=== PATIENT | female | born 1950 | race Hispanic/Latino ===

== ENCOUNTER 2020-10-02 14:00 | Inpatient (IN) | payer MEDICARE ==
[~2020-10-02] VITALS: Ht 157.5 cm; Wt 84.7 kg
[2020-10-02 12:21] LABS: APPEARANCE,URINE Clear (CLEAR); BILIRUBIN,URINE Negative (NEGATIVE); COLOR,URINE Yellow (YELLOW); GLUCOSE, URINE (UA) Negative (NEGATIVE); KETONES,URINE Negative (NEGATIVE); LEUKOCYTE ESTERASE ,URINE Trace (NEGATIVE); NITRATE,URINE Negative (NEGATIVE); OCCULT BLOOD,URINE Negative (NEGATIVE); PH,URINE 7.5 (5.0-8.0); PROTEIN,URINE Negative (NEGATIVE)
[2020-10-02 12:36] LABS: BACTERIA,URINE Few /HPF (None Seen); RBC,URINE 0-1 /HPF (0-1); WBC,URINE 0-1 /HPF (0-1)
[2020-10-02 12:45] LABS: BASOPHILS % (AUTO) 0.1 % (0.0-5.0); EOSINOPHILS % (AUTO) 0.1 % (0.0-8.0); HEMATOCRIT 37.2 % (36-48); LYMPHOCYTES % (AUTO) 15.5 % (21.0-51.0); MEAN CORPUSCULAR HEMOGLOBIN 28.1 pg (27.0-33.0); MEAN CORPUSCULAR HGB CONC 31.2 g/dL (32.0-36.0); MEAN CORPUSCULAR VOLUME 90.1 fL (79-99); MONOCYTES % (AUTO) 6.5 % (3.0-13.0); NEUTROPHILS % (AUTO) 77.2 % (40.0-77.0); PLATELET COUNT (AUTO) 311 K/uL (130-400); RED BLOOD CELL COUNT(AUTO) 4.13 MIL/uL (4.00-5.50); WHITE BLOOD COUNT (AUTO) 8.8 K/uL (4.8-10.8)
[2020-10-02 13:05] LABS: INR 0.99 (0.85-1.15); PROTHROMBIN TIME 10.7 SEC (9.6-11.6)
[2020-10-02 13:13] LABS: CREATININE 0.9 mg/dL (0.5-1.5)
[2020-10-02 13:18] LABS: POTASSIUM 4.4 mmol/L (3.5-5.1)
--- NOTE | 2020-10-08 12:40 | NUR ---
EKG DR. ROLON NOTIFIED OF ABNORMAL EKG. NO NEW ORDERS RECEIVED. OK TO PROCEED WITH SCHEDULED SURGERY.
--- NOTE | 2020-10-08 13:51 | NUR ---
LABS ABNORMAL LABS INCLUDING TRACE LEUKOCYTES REPORTED TO DR. HOLLY. NO NEW TELEPHONE ORDERS RECEIVED. OK TO PROCEED WITH SCHEDULED PROCEDURE.
[2020-10-08 14:07] VITALS: BP 144/73
[2020-10-08] MEDS ORDERED: PRAV20TA4 PO (14:45)
[2020-10-08] MEDS ORDERED: IBUP-2070 PO (14:45)
[2020-10-08] MEDS ORDERED: ACET-2743 PO (14:45)
[2020-10-08] MEDS ORDERED: VITAD50000 PO (14:45)
[2020-10-08] MEDS ORDERED: LIDO1ADH71 TP (14:45)
[2020-10-09] VITALS (23 sets, daily range): BP systolic 100–163; BP diastolic 62–87
[2020-10-09] MEDS ORDERED: CEFAZOLIN SODIUM 1 GM VIAL IVP SCH (06:00)
[2020-10-09] MEDS ORDERED: LACTATED RINGERS 1000ML 1,000 ML IV ONE (09:20)
[2020-10-09] MEDS ORDERED: TRANEXAMIC ACID 1000MG/10ML ONE ×3 (13:27→20:50)
[2020-10-09] MEDS ORDERED: CEFAZOLIN SODIUM 1 GM VIAL ONE ×3 (13:27→19:09)
[2020-10-09] MEDS ORDERED: METOCLOPRAMIDE 10 MG/2 ML VIAL ONE (13:28)
[2020-10-09] MEDS ORDERED: KETOROLAC TROMETHAMINE 15MG/ML ONE (13:28)
[2020-10-09] MEDS ORDERED: ACETAMINOPHEN EXTRA STRENGTH 500 MG TABLET ONE (13:28)
[2020-10-09] MEDS ORDERED: CELECOXIB 200 MG CAP ONE (13:29)
[2020-10-09] MEDS ORDERED: PROPOFOL 10 MG/ML 20ML VIAL IV ONE (13:42)
[2020-10-09] MEDS ORDERED: ROCURONIUM 10MG/1ML SYR 10 MG/ML ML ONE ×4 (13:42→18:32)
[2020-10-09] MEDS ORDERED: LIDOCAINE PF 2% 5ML ABBOJECT ONE (13:42)
[2020-10-09] MEDS ORDERED: SUCCINYLCHOLINE CHLORIDE 20 MG/ML 10 ML VIAL ONE (13:42)
[2020-10-09] MEDS ORDERED: ROPIVACAINE 0.5% 5MG/ML 30ML IJ ONE ×2 (13:42→13:45)
[2020-10-09] MEDS ORDERED: CEFAZOLIN SODIUM 1 GM VIAL IVP ONE ×2 (15:30→19:30)
[2020-10-09] MEDS ORDERED: TRANEXAMIC ACID 1000MG/10ML IV ONE (15:45)
[2020-10-09] MEDS ORDERED: CEFAZOLIN SODIUM 1 GM VIAL IRRIG ONE ×2 (16:15)
[2020-10-09] MEDS ORDERED: ALBUMIN (HUMAN) 5% 250 ML IV ONE ×2 (16:30→17:18)
[2020-10-09] MEDS ORDERED: THROMBIN-JMI 20000 UNIT KIT TP ONE ×2 (17:29→17:59)
[2020-10-09] MEDS ORDERED: SODIUM BICARB 8.4% 50ML SYRINGE ONE (17:36)
[2020-10-09] MEDS ORDERED: PHENYLEPHRINE HCL 10 MG/ML 1ML VIAL IV ONE (18:31)
[2020-10-09] MEDS ORDERED: MIDAZOLAM HCL 1 MG/ML 2ML VIAL ONE (18:33)
[2020-10-09] MEDS ORDERED: PROPOFOL 1000 MG/100 ML 0 ML IV ONE (20:34)
[2020-10-09] MEDS ORDERED: PROPOFOL 1000 MG/100 ML 100 ML IV ONE (20:38)
--- NOTE | 2020-10-09 20:40 | NUR ---
16FR F/C STARTED ORDERED BY DR. HOLLY. PROCEDURE RENDERED USING CIRCUS LABORER, NO TRAUMA, NO DIFFICULTY, CLEAR IN COLOR LIGHT SUNITA URINE DRAINING Addendum: 10/09/20 at 2212 by MONICA CAMARENA RN RN Amended: Links added.
[2020-10-09] MEDS ORDERED: MORPHINE SULFATE 2 MG/ML 1ML SYG IM PRN (20:45)
[2020-10-09] MEDS ORDERED: DiphenhydrAMINE HCL 50 MG/ML VIAL IVP PRN (20:45)
[2020-10-09] MEDS ORDERED: POTASSIUM CHLORIDE 10% ELIXIR 20 MEQ/15 ML UDCUP PO PRN (20:45)
[2020-10-09] MEDS ORDERED: POTASSIUM CHLORIDE 20 MEQ ERTAB PO PRN (20:45)
[2020-10-09] MEDS ORDERED: CALCIUM CARBONATE 500 MG TABLET PO PRN (20:45)
[2020-10-09] MEDS ORDERED: FE FUMARATE/FA/MV, MIN COMB#15 1 TAB PO PRN (20:45)
[2020-10-09] MEDS ORDERED: OXYCODONE HCL 5 MG TAB PO PRN ×2 (20:45)
[2020-10-09] MEDS ORDERED: POTASSIUM CHLORIDE 20MEQ/100ML 100 ML IV PRN (20:45)
[2020-10-09] MEDS ORDERED: TEMAZEPAM 15 MG CAPSULE PO PRN (20:45)
[2020-10-09] MEDS: ACETAMINOPHEN EXTRA STRENGTH 500 MG TABLET PO SCH (20:45)
[2020-10-09] MEDS ORDERED: LIDOCAINE HCL-MPF 1% 2ML VIAL IV PRN (20:45)
[2020-10-09] MEDS ORDERED: FAMOTIDINE 20MG TAB 20 MG TAB PO SCH (21:00)
[2020-10-09] MEDS: CELECOXIB 200 MG CAP PO SCH (21:00)
--- NOTE | 2020-10-09 21:20 | NUR ---
PT OPENS EYES TO VERBAL STIMULI , MOVES RT HAND AND LOWER EXTREMITIES TO COMMAND, UNABLE TO MOVE LT ARM. NODS APPROPRIATELY TO NAME. PT IS ABLE TO FELL TACTILE STIMULI TO LT ARM .
--- NOTE | 2020-10-09 21:20 | NUR ---
PT. OPENS EYES TO VERBAL COMMANDS,AND NODS APPROPRIATELY TO NAME. FOLLOWS VERBAL COMMANDS WITH RT UPPER EXTREMITY,AND LOWER EXTREMITIES . PI IS UNABLE TO MOVE LT UPPER EXTREMITY BUT NODS ABLE TO FEEL TACTILE STIMULI. Addendum: 10/09/20 at 2219 by MONICA CAMARENA RN RN Amended: Links added.
[2020-10-09 21:35] LABS: ABG BASE EXCESS -5.3 mmol/L (-2.0-3.0); ABG HCO3 20.6 mmol/L (21.0-28.0); ABG OXYGEN SATURATION 98.9 % (95.0-99.0); ABG PCO2 41 mmHg (32-45)
[2020-10-09 21:35] LABS: ABG BASE EXCESS 2.1 mmol/L (-2.0-3.0); ABG OXYGEN SATURATION 98.6 % (95.0-99.0); ABG PCO2 37 mmHg (32-45)
[2020-10-09 21:35] LABS: ABG BASE EXCESS 8.4 mmol/L (-2.0-3.0); ABG OXYGEN SATURATION 98.5 % (95.0-99.0); ABG PCO2 46 mmHg (32-45)
[2020-10-09] MEDS ORDERED: SODIUM CHLORIDE 0.9% 250 ML IV ONE (21:47)
--- NOTE | 2020-10-09 21:55 | NUR ---
PT. NEUROLOGICALLY THE SAME NOTE DESCRIBED AT 2120 PM. TRANSFER TO ICU ON MECH VENT AT PRESCRIBED SETTINGS, UNIT OF PRBC RUNNING ORDERED,BUT NOT COMPLETED. Addendum: 10/09/20 at 2223 by MONICA CAMARENA RN RN Amended: Links added.
[2020-10-09 22:35] LABS: ABG OXYGEN SATURATION 98.2 % (95.0-99.0); ABG PCO2 35 mmHg (32-45)
[2020-10-09] MEDS: ONDANSETRON HCL 4 MG/2 ML VIAL IVP PRN (23:22)
[2020-10-10] VITALS (16 sets, daily range): BP systolic 104–134; BP diastolic 51–71
[2020-10-10] MEDS ORDERED: MORPHINE-NS 50 MG/50 ML 50 ML IV PRN (00:30)
[2020-10-10 01:50] LABS: ABG BASE EXCESS -0.2 mmol/L (-2.0-3.0); ABG HCO3 24.3 mmol/L (21.0-28.0); ABG OXYGEN SATURATION 97.8 % (95.0-99.0); ABG PCO2 39 mmHg (32-45)
[2020-10-10] MEDS: CEFAZOLIN SODIUM 1 GM VIAL IVP SCH ×2 (02:06→09:39)
[2020-10-10] MEDS ORDERED: LACTATED RINGERS 1000ML 1,000 ML IV SCH (02:30)
[2020-10-10 03:53] LABS: HEMATOCRIT 25.6 % (36-48); MEAN CORPUSCULAR HGB CONC 34.4 g/dL (32.0-36.0); MEAN CORPUSCULAR VOLUME 84.5 fL (79-99); PLATELET COUNT (AUTO) 60 K/uL (130-400); RED BLOOD CELL COUNT(AUTO) 3.03 MIL/uL (4.00-5.50); RED CELL DISTRIBUTION WIDTH 13.3 % (11.0-15.5); WHITE BLOOD COUNT (AUTO) 16.6 K/uL (4.8-10.8)
[2020-10-10 04:03] LABS: INR 1.03 (0.85-1.15); PROTHROMBIN TIME 11.1 SEC (9.6-11.6)
[2020-10-10 04:15] LABS: BILIRUBIN,DIRECT 0.9 mg/dL (0.0-0.3); BILIRUBIN,TOTAL 1.6 mg/dL (0.2-1.0); CREATININE 0.8 mg/dL (0.5-1.5); POTASSIUM 3.9 mmol/L (3.5-5.1)
[2020-10-10] MEDS: SODIUM CHLORIDE 0.9% 1000ML 1,000 ML IV SCH ×2 (04:26→06:45)
[2020-10-10] MEDS: ONDANSETRON HCL 4 MG/2 ML VIAL IVP PRN (04:26)
[2020-10-10] MEDS: ACETAMINOPHEN EXTRA STRENGTH 500 MG TABLET PO SCH ×3 (04:45→22:46)
--- NOTE | 2020-10-10 07:46 | NUR ---
Pt. arrived intubated and sedated on Propofol and with Levophed gtt Right arm in sling. Notified Pulmonology group for vent orders, RT to check weaning parameters and extubate if criteria met, propofol and levophed off. Pt. was extubated at 2:30 am tolerated well. Pt c/o pain in mouth area, however no pain in right shoulder surgical arm. Medicated with IV med for pain but bp decreased 90/52 restarted Levophed No further c/o pain this am.
[2020-10-10] MEDS: TRAMADOL HCL 50 MG TABLET PO PRN ×2 (08:07→18:02)
[2020-10-10] MEDS: POLYETHYLENE GLYCOL 3350 17 GM POWD.PACK PO SCH (08:07)
[2020-10-10] MEDS: MORPHINE SULFATE 2 MG/ML 1ML SYG IV PRN (09:26)
[2020-10-10] MEDS: FAMOTIDINE 20MG TAB 20 MG TAB PO SCH (09:27)
[2020-10-10] MEDS: CELECOXIB 200 MG CAP PO SCH ×2 (09:31→22:47)
[2020-10-10 10:12] LABS: HEMATOCRIT 22.2 % (36-48)
[2020-10-10 11:07] LABS: APPEARANCE,URINE CLEAR (CLEAR); BILIRUBIN,URINE MODERATE (NEGATIVE); GLUCOSE, URINE (UA) NEGATIVE (NEGATIVE); KETONES,URINE NEGATIVE (NEGATIVE); LEUKOCYTE ESTERASE ,URINE NEGATIVE (NEGATIVE); NITRATE,URINE NEGATIVE (NEGATIVE); OCCULT BLOOD,URINE TRACE-INTACT (NEGATIVE); PH,URINE 5.5 (5.0-8.0); PROTEIN,URINE TRACE mg/dL (NEGATIVE)
[2020-10-10 11:08] LABS: COLOR,URINE DARK YELLOW (YELLOW)
[2020-10-10 11:33] LABS: BACTERIA,URINE Rare /HPF (None Seen); SQUAMOUS EPITHELIAL CELL,UR Rare /HPF (0-2)
[2020-10-10] MEDS ORDERED: CALCIUM CHLORIDE 100 MG/ML 10 ML SYG IVP ONE (12:06)
[2020-10-10] MEDS ORDERED: NOREPINEPHRINE BITARTRATE 1 MG/1 ML ML IV ONE (12:06)
[2020-10-10] MEDS ORDERED: EPINEPHRINE 0.1 MG/ML 10 ML SYG IVP ONE (12:06)
[2020-10-10] MEDS ORDERED: SODIUM BICARB 8.4% 50ML SYRINGE IVP ONE (12:06)
[2020-10-10] MEDS ORDERED: IOHEXOL 350 MG/ML 100ML INFUS..BTL IV ONE (13:22)
--- NOTE | 2020-10-10 15:32 | NUR ---
CHART CHECK COMPLETED PT IS A 70 Y.O. FEMALE ADMITTED SECONDARY TO RIGHT PATHOLOGICAL FRACTURE OF RIGHT HUMERUS DUE TO NEOPLASM. PT CURRENTLY ON REGULAR TEXTURE, THIN LIQUID DIET. PLEASE REQUEST FORMAL SKILLED SPEECH/SWALLOW EVALUATION IF Pt PRESENTS WITH +S/S OF ASPIRATION OF COUGH RESPONSE, THROAT CLEAR OR WET VOCAL QUALITY DURING MEAL TIMES. Addendum: 10/10/20 at 1537 by ANNALEE MALONEY, [facility] Amended: Links added.
[2020-10-10 15:53] LABS: HEMATOCRIT 20.9 % (36-48)
[2020-10-10] MEDS ORDERED: SODIUM CHLORIDE 0.9% 250 ML IV ONE (16:08)
--- NOTE | 2020-10-10 16:52 | NUR ---
DC PLAN PATIENT LIVES WITH SPOUSE INDEPENDENT ABLE TO PERFORM ADL'S. PATIENT HAS NO SERVICES OR DME'S. FEELS SAFE TO RETURN HOME. DAUGHTER WORRIED ABOUT HOME EQUIPMENT. Addendum: 10/10/20 at 1656 by GELA DALLAS RN CM Amended: Links added.
[2020-10-10 22:55] LABS: HEMATOCRIT 22.8 % (36-48); MEAN CORPUSCULAR HEMOGLOBIN 29.8 pg (27.0-33.0); MEAN CORPUSCULAR HGB CONC 34.2 g/dL (32.0-36.0); RED BLOOD CELL COUNT(AUTO) 2.62 MIL/uL (4.00-5.50); WHITE BLOOD COUNT (AUTO) 10.8 K/uL (4.8-10.8)
[2020-10-11] VITALS (18 sets, daily range): BP systolic 97–132; BP diastolic 43–68
[2020-10-11] MEDS: ONDANSETRON HCL 4 MG/2 ML VIAL IVP PRN ×2 (01:42→20:23)
[2020-10-11 03:31] LABS: HEMATOCRIT 22.5 % (36-48); MEAN CORPUSCULAR HEMOGLOBIN 29.3 pg (27.0-33.0); MEAN CORPUSCULAR HGB CONC 33.3 g/dL (32.0-36.0); MEAN CORPUSCULAR VOLUME 87.9 fL (79-99); RED BLOOD CELL COUNT(AUTO) 2.56 MIL/uL (4.00-5.50); WHITE BLOOD COUNT (AUTO) 9.2 K/uL (4.8-10.8)
[2020-10-11 04:12] LABS: CREATININE 0.8 mg/dL (0.5-1.5); POTASSIUM 3.7 mmol/L (3.5-5.1)
[2020-10-11] MEDS: KETOROLAC TROMETHAMINE 15MG/ML IV PRN ×2 (05:01→18:14)
[2020-10-11] MEDS: ACETAMINOPHEN EXTRA STRENGTH 500 MG TABLET PO SCH ×2 (05:04→12:45)
--- NOTE | 2020-10-11 06:30 | NUR ---
Pt. is alert and oriented. C/o shoulder discomfort and left hand swelling elevated on pillow. Medicated for pain x3 overnight. Will have CT Spine this am.
[2020-10-11] MEDS: FAMOTIDINE 20MG TAB 20 MG TAB PO SCH (08:38)
[2020-10-11] MEDS: CELECOXIB 200 MG CAP PO SCH ×2 (08:38→20:23)
[2020-10-11] MEDS: POLYETHYLENE GLYCOL 3350 17 GM POWD.PACK PO SCH (08:39)
--- NOTE | 2020-10-11 09:40 | NUR ---
Rec'd report from Nereyda Albright RN, to assume nursing care for the rest of the shift
[2020-10-11 09:53] LABS: HEMATOCRIT 22.7 % (36-48)
[2020-10-11 11:28] LABS: BILIRUBIN,DIRECT 0.2 mg/dL (0.0-0.3); BILIRUBIN,TOTAL 0.5 mg/dL (0.2-1.0)
--- NOTE | 2020-10-11 14:05 | NUR ---
NICCI Lockett made aware about Preliminary report of Venous Doppler: Left Cepahalic Vein occluded, no new orders given
[2020-10-11 15:54] LABS: HEMATOCRIT 21.5 % (36-48)
[2020-10-11] MEDS: TRAMADOL HCL 50 MG TABLET PO PRN (19:07)
[2020-10-11 21:37] LABS: HEMATOCRIT 21.9 % (36-48)
[2020-10-11] MEDS: MORPHINE SULFATE 2 MG/ML 1ML SYG IV PRN (23:09)
[2020-10-12] VITALS (24 sets, daily range): BP systolic 109–151; BP diastolic 54–87
[2020-10-12 03:39] LABS: HEMATOCRIT 22.9 % (36-48); MEAN CORPUSCULAR HEMOGLOBIN 29.6 pg (27.0-33.0); MEAN CORPUSCULAR HGB CONC 32.3 g/dL (32.0-36.0); MEAN CORPUSCULAR VOLUME 91.6 fL (79-99); NUCLEATED RED BLOOD CELLS 0.4 % (0.0-0.19); RED BLOOD CELL COUNT(AUTO) 2.5 MIL/uL (4.00-5.50); WHITE BLOOD COUNT (AUTO) 7.1 K/uL (4.8-10.8)
[2020-10-12 03:48] LABS: CREATININE 0.7 mg/dL (0.5-1.5); POTASSIUM 3.9 mmol/L (3.5-5.1)
[2020-10-12] MEDS: ACETAMINOPHEN EXTRA STRENGTH 500 MG TABLET PO SCH ×3 (05:09→14:29)
[2020-10-12] MEDS: POLYETHYLENE GLYCOL 3350 17 GM POWD.PACK PO SCH (08:58)
[2020-10-12] MEDS: CELECOXIB 200 MG CAP PO SCH (08:58)
[2020-10-12] MEDS: FAMOTIDINE 20MG TAB 20 MG TAB PO SCH (08:58)
[2020-10-12 09:38] LABS: HEMATOCRIT 22.8 % (36-48)
--- NOTE | 2020-10-12 14:56 | NUR ---
Dr. Kirk contacted per Dr. Hagen request. Per Dr. Kirk ok to start anticoagulation, do not transfuse at this time.
[2020-10-12] MEDS ORDERED: MAGNESIUM CITRATE 296 ML SOLUTION PO ONE (15:50)
[2020-10-12] MEDS ORDERED: BISACODYL 10 MG SUPP.RECT RC ONE (15:50)
[2020-10-12] MEDS ORDERED: NOREPINEPHRINE 4MG/NS 250ML 250 ML IV ONE (17:47)
[2020-10-12] MEDS ORDERED: SODIUM CHLORIDE 0.9% 1000ML 1,000 ML IV ONE (17:47)
[2020-10-12] MEDS: APIXABAN 2.5 MG TABLET PO SCH (20:07)
[2020-10-12] MEDS ORDERED: BISACODYL 10 MG SUPP.RECT RC PRN (20:45)
[2020-10-13] VITALS (17 sets, daily range): BP systolic 105–142; BP diastolic 49–71
[2020-10-13 03:46] LABS: BASOPHILS % (AUTO) 0.4 % (0.0-5.0); EOSINOPHILS % (AUTO) 3.1 % (0.0-8.0); HEMATOCRIT 24.3 % (36-48); LYMPHOCYTES % (AUTO) 13.8 % (21.0-51.0); MEAN CORPUSCULAR HEMOGLOBIN 29.9 pg (27.0-33.0); MEAN CORPUSCULAR HGB CONC 31.3 g/dL (32.0-36.0); MEAN CORPUSCULAR VOLUME 95.7 fL (79-99); NEUTROPHILS % (AUTO) 75.8 % (40.0-77.0); NUCLEATED RED BLOOD CELLS 0.5 % (0.0-0.19); PLATELET COUNT (AUTO) 74 K/uL (130-400); RED BLOOD CELL COUNT(AUTO) 2.54 MIL/uL (4.00-5.50); RED CELL DISTRIBUTION WIDTH 14.7 % (11.0-15.5); WHITE BLOOD COUNT (AUTO) 5.5 K/uL (4.8-10.8)
[2020-10-13] MEDS: ACETAMINOPHEN EXTRA STRENGTH 500 MG TABLET PO SCH ×4 (04:26→21:49)
--- NOTE | 2020-10-13 07:15 | NUR ---
ASSESSMENT PT IS AAOX3 RESTING IN BED, DENIES CP DENIES SOB. DENIES NV. NOTED RIGHT SHOULDER DRESSING IS PLACE, CLEAN DRY AND INTACT. RIGHT ARM SLING IS IN PLACE. STRONG RIGHT RADIAL PULSE FELT, IS ABLE TO MOVE HAND AND FINGERS WITH FULL ROM. STATES SENSATION TO LIGHT TOUGH TO ALL RIGHT FINGERS. SIDE RAILS UP X3 CALL LIGHT WITHIN REACH.
[2020-10-13] MEDS: FAMOTIDINE 20MG TAB 20 MG TAB PO SCH (07:43)
[2020-10-13] MEDS: APIXABAN 2.5 MG TABLET PO SCH ×2 (07:43→21:44)
[2020-10-13] MEDS: CELECOXIB 200 MG CAP PO SCH ×3 (07:43→21:44)
[2020-10-13] MEDS: POLYETHYLENE GLYCOL 3350 17 GM POWD.PACK PO SCH (07:48)
--- NOTE | 2020-10-13 10:34 | NUR ---
DR HOLLY CALLED UPDATES GIVEN. NO NEW ORDERS RECEIVED AT THIS TIME.
--- NOTE | 2020-10-13 12:50 | NUR ---
DR TREVON BA SPOKE WITH PATIENT AND DAUGHTER. ORDERS RECEIVED.
[2020-10-13] MEDS ORDERED: KETOROLAC TROMETHAMINE 15MG/ML IV PRN (13:00)
[2020-10-13] MEDS ORDERED: MORPHINE SULFATE 2 MG/ML 1ML SYG IM PRN (13:00)
--- NOTE | 2020-10-13 13:21 | NUR ---
DRESSING TO RIGHT ARM CHANGED ALL JACE ARE INTACT, INCISION IS CLEAN AND DRY, NO DEHISENCE NOTED TO INCISION. PAINTED SITE WITH BETADINE AND COVERED WITH VASELINE GAUZE, NON ADHERENT GAUZE AND SECURED WITH HYPAFIX TAPE. PATIENT TOLERATED WELL DENIES PAIN. RIGHT ARM SLING IN PLACE.
[2020-10-13] MEDS ORDERED: PAMIDRONATE DISODIUM 90MG VIAL 90 MG in SODIUM CHLORIDE 0.9% 1000ML 1,000 ML IV SCH (13:30)
[2020-10-13] MEDS ORDERED: COMPOUND IV MISC 1 EACH IVSOLN MISC PRN (13:30)
--- NOTE | 2020-10-13 14:40 | NUR ---
REPORT GIVEN TO JOSE ANGEL BERNARDO PATIENT TRANSFERRED TO ROOM 303. ALL BELONGINGS TAKEN WITH PATIENT, DAUGHTER ALSO UP WITH PATIENT. PT REMAINS AAOX3 NO COMPLAINTS.
[2020-10-14] VITALS (7 sets, daily range): BP systolic 116–143; BP diastolic 60–84
[2020-10-14] MEDS: ACETAMINOPHEN EXTRA STRENGTH 500 MG TABLET PO SCH ×3 (05:05→20:01)
[2020-10-14] MEDS: APIXABAN 2.5 MG TABLET PO SCH ×2 (08:38→19:55)
[2020-10-14] MEDS: CELECOXIB 200 MG CAP PO SCH ×2 (08:38→19:55)
[2020-10-14] MEDS: FOLIC ACID 1 MG TABLET PO SCH (08:38)
[2020-10-14] MEDS: POLYETHYLENE GLYCOL 3350 17 GM POWD.PACK PO SCH (08:38)
[2020-10-14] MEDS: IRON SUCROSE COMPLEX 100 MG in SODIUM CHLORIDE 0.9% 50 ML IV SCH (08:38)
[2020-10-14] MEDS: FAMOTIDINE 20MG TAB 20 MG TAB PO SCH (08:38)
[2020-10-14] MEDS: CYANOCOBALAMIN (VITAMIN B-12) 100 MCG TABLET PO SCH (10:08)
[2020-10-14] MEDS: ONDANSETRON HCL 4 MG/2 ML VIAL IVP PRN (19:55)
--- NOTE | 2020-10-14 21:06 | NUR ---
MD Dr HOLLY came to see pt.
--- NOTE | 2020-10-15 00:29 | NUR ---
REPOSITION Pt repositioned in bed,daughter at bedside.Rt shoulder dressing dry and intact,sling on,elevated with pillow.Denies pain.
[2020-10-15] MEDS: TRAMADOL HCL 50 MG TABLET PO PRN (03:16)
[2020-10-15 03:46] VITALS: BP 125/67
[2020-10-15 03:49] LABS: MEAN CORPUSCULAR HEMOGLOBIN 32.9 pg (27.0-33.0); MEAN CORPUSCULAR VOLUME 96.7 fL (79-99); NUCLEATED RED BLOOD CELLS 2.8 % (0.0-0.19); PLATELET COUNT (AUTO) 139 K/uL (130-400); RED BLOOD CELL COUNT(AUTO) 2.13 MIL/uL (4.00-5.50); RED CELL DISTRIBUTION WIDTH 16.5 % (11.0-15.5); WHITE BLOOD COUNT (AUTO) 5.3 K/uL (4.8-10.8)
[2020-10-15 04:04] LABS: CREATININE 0.6 mg/dL (0.5-1.5)
[2020-10-15 04:06] LABS: HEMATOCRIT 20.6 % (36-48)
[2020-10-15] MEDS: ACETAMINOPHEN EXTRA STRENGTH 500 MG TABLET PO SCH ×3 (04:37→19:33)
[2020-10-15 04:43] LABS: BAND NEUTROPHILS % (MANUAL) 5 % (0-2); LYMPHOCYTES % (MANUAL) 6 % (22-44); MONOCYTES % (MANUAL) 3 % (2-9); SEGMENTED NEUTROPHILS % 86 % (40-70)
[2020-10-15 04:44] LABS: MAN.DIFF COMMENT-IMPRESSION MANUAL DIFFERENTIAL
--- NOTE | 2020-10-15 06:21 | NUR ---
DR AVNI HOLLY notified re hg 7,hct 20.6.He said no new order for now He will let Dr Kirk manage it.
[2020-10-15] MEDS: FOLIC ACID 1 MG TABLET PO SCH (08:10)
[2020-10-15] MEDS: FAMOTIDINE 20MG TAB 20 MG TAB PO SCH (08:10)
[2020-10-15] MEDS: POLYETHYLENE GLYCOL 3350 17 GM POWD.PACK PO SCH (08:10)
[2020-10-15] MEDS: CYANOCOBALAMIN (VITAMIN B-12) 100 MCG TABLET PO SCH (08:10)
[2020-10-15] MEDS: IRON SUCROSE COMPLEX 100 MG in SODIUM CHLORIDE 0.9% 50 ML IV SCH (08:10)
[2020-10-15] MEDS: CELECOXIB 200 MG CAP PO SCH ×2 (08:10→20:12)
[2020-10-15] MEDS: APIXABAN 2.5 MG TABLET PO SCH ×2 (08:11→20:12)
--- NOTE | 2020-10-15 09:29 | NUR ---
CALLED DR SHAFER OFFICE. SPOKE TO SUNITA GARCIA AND REPORTED BONE SCAN RESULTS. PER DR LESTER, HE WILL BE HERE TODAY AT LUNCH TIME TO SEE PATIENT. NO FURTHER ORDERS RECEIVED.
[2020-10-15 09:30] VITALS: BP 128/70
[2020-10-15 11:35] VITALS: BP 130/66
--- NOTE | 2020-10-15 13:00 | NUR ---
DR LESTER VISITED WITH PATIENT. POC DISCUSSED. DR LESTER EXPLAINED TO THE PATIENT AND HER DAUGHTER AT BEDSIDE HER DIAGNOSIS. HIS RECOMMENDATIONS WERE CHEMOTHERAPY WELL RADIATION. HE ALSO ORDERED 1 UNIT OF PRBCs. BENADRYL AND DECADRON TO BE GIVEN BEFORE TRANSFUSION. PATIENT WAS ABLE TO SIT AT THE EDGE OF THE BED WITHOUT COMPLAINING OF DIZZINESS. DAUGHTER STATED THAT HER FAMILY IS NOT ABLE TO TAKE CARE OF HER MOTHER AT HOME BECAUSE EVERYONE WORKS. IMPLEMENTATION SPECIALIST [employer] CONSULTED FOR POSSIBLE SNF, HOME HEALTH.
[2020-10-15] MEDS ORDERED: DEXAMETHASONE SOD PHOSPHATE 4 MG/ML 1ML VIAL IVP SCH (14:45)
[2020-10-15] MEDS ORDERED: DIPHENHYDRAMINE HCL 25 MG CAPSULE PO SCH (14:45)
[2020-10-15 16:28] VITALS: BP 112/52
--- NOTE | 2020-10-15 18:22 | NUR ---
benadryl and dexamethasone given as per Dr Kirk orders. waiting 1 hour for medications to take effect to start transfusion.
--- NOTE | 2020-10-15 19:55 | NUR ---
PRBC Prbc unit started,refer to blood transfusion record.
[2020-10-15 20:08] VITALS: BP 121/61
--- NOTE | 2020-10-15 22:30 | NUR ---
PRBC Tolerated prb,no adverse reactions noted.
[2020-10-15 23:40] VITALS: BP 124/67
[2020-10-16] MEDS: TRAMADOL HCL 50 MG TABLET PO PRN ×2 (02:43→08:41)
[2020-10-16 03:52] VITALS: BP 124/63
[2020-10-16] MEDS: ACETAMINOPHEN EXTRA STRENGTH 500 MG TABLET PO SCH ×3 (03:56→20:16)
[2020-10-16 05:57] LABS: BASOPHILS % (AUTO) 0.3 % (0.0-5.0); EOSINOPHILS % (AUTO) 0.1 % (0.0-8.0); HEMATOCRIT 26.4 % (36-48); LYMPHOCYTES % (AUTO) 11.1 % (21.0-51.0); MEAN CORPUSCULAR HEMOGLOBIN 31.8 pg (27.0-33.0); MEAN CORPUSCULAR HGB CONC 33.7 g/dL (32.0-36.0); MEAN CORPUSCULAR VOLUME 94.3 fL (79-99); MONOCYTES % (AUTO) 4.9 % (3.0-13.0); NEUTROPHILS % (AUTO) 79.8 % (40.0-77.0); NUCLEATED RED BLOOD CELLS 2.1 % (0.0-0.19); PLATELET COUNT (AUTO) 214 K/uL (130-400); RED CELL DISTRIBUTION WIDTH 18.4 % (11.0-15.5); WHITE BLOOD COUNT (AUTO) 7.7 K/uL (4.8-10.8)
[2020-10-16 08:30] VITALS: BP 136/66
[2020-10-16] MEDS: CYANOCOBALAMIN (VITAMIN B-12) 100 MCG TABLET PO SCH (08:40)
[2020-10-16] MEDS: APIXABAN 2.5 MG TABLET PO SCH ×2 (08:40→20:14)
[2020-10-16] MEDS: FAMOTIDINE 20MG TAB 20 MG TAB PO SCH (08:40)
[2020-10-16] MEDS: CELECOXIB 200 MG CAP PO SCH ×2 (08:40→20:15)
[2020-10-16] MEDS: FOLIC ACID 1 MG TABLET PO SCH (08:40)
[2020-10-16] MEDS: POLYETHYLENE GLYCOL 3350 17 GM POWD.PACK PO SCH (08:41)
[2020-10-16] MEDS ORDERED: ERGOCALCIFEROL (VITAMIN D2) 50,000 UNIT CAPSULE PO SCH (09:00)
[2020-10-16 11:38] VITALS: BP 103/61
--- NOTE | 2020-10-16 14:45 | NUR ---
DC PLAN SPOKE TO PATIENT AND DAUGHTER. SPOKE TO THEM REGARDING DC PLAN. GOT ORDER FOR SNF FROM [facility]. ANGELIA GIVEN FOR [id number]. PACKET SENT. STILL PENDING BUSINESS OFFICE TO SEE IF THEY ARE IN NETWORK WITH PATIENT. Addendum: 10/16/20 at 1455 by GELA DALLAS RN CM Amended: Links added.
[2020-10-16] MEDS ORDERED: MECLIZINE HCL 12.5 MG TABLET PO SCH (15:00)
[2020-10-16] MEDS: IRON SUCROSE COMPLEX 100 MG in SODIUM CHLORIDE 0.9% 50 ML IV SCH (15:04)
[2020-10-16 17:27] VITALS: BP 114/64
[2020-10-16] MEDS: ATORVASTATIN CALCIUM 10 MG TABLET PO SCH (20:15)
[2020-10-16 20:20] VITALS: BP 117/63
[2020-10-17 00:12] VITALS: BP 119/55
--- NOTE | 2020-10-17 02:06 | NUR ---
NOTE PT C/O PAIN WHILE URINATING AND FEELING OF BEING UNABLE TO EMPTY BLADDER COMPLETELY. BROUGHT BLADDER SCANNER INTO ROOM TO ASSESS VOLUME REMAINING IN BLADDER POST VOID. PT DECLINED SCAN. REPORTS THAT THE PAIN IS NO LONGER THERE. I OFFERED TO DO SCAN JUST TO MAKE SURE SHE WAS FULLY EMPTYING BLADDER , PT CONT TO DECLINE. DAUGHTER AT BEDSIDE, WITNESSED PT VERBALLY DECLINE SCAN AND VERBALIZE THAT PAIN WAS NO LONGER PRESENT.
[2020-10-17 04:24] VITALS: BP 125/68
[2020-10-17] MEDS: ACETAMINOPHEN EXTRA STRENGTH 500 MG TABLET PO SCH ×3 (04:46→20:13)
[2020-10-17 05:04] LABS: HEMATOCRIT 24.5 % (36-48); MEAN CORPUSCULAR HEMOGLOBIN 31.5 pg (27.0-33.0); MEAN CORPUSCULAR HGB CONC 32.7 g/dL (32.0-36.0); MEAN CORPUSCULAR VOLUME 96.5 fL (79-99); PLATELET COUNT (AUTO) 227 K/uL (130-400); RED BLOOD CELL COUNT(AUTO) 2.54 MIL/uL (4.00-5.50); RED CELL DISTRIBUTION WIDTH 19.6 % (11.0-15.5); WHITE BLOOD COUNT (AUTO) 6.6 K/uL (4.8-10.8)
--- NOTE | 2020-10-17 05:18 | NUR ---
WOUND CARE COMPLETED AT THIS TIME. SITE CLEAN, DRY AND JACE INTACT. PAINTED SITE WITH BETADINE. APPLIED NON-ADHERENT GAUZE, 4X4 GAUZE AND SECURED WITH MEDIPORE TAPE. PT SEBASTIÁN WELL. RIGHT UE IN SLING.
[2020-10-17 05:20] LABS: CREATININE 0.8 mg/dL (0.5-1.5); POTASSIUM 4.1 mmol/L (3.5-5.1)
[2020-10-17 06:39] LABS: BAND NEUTROPHILS % (MANUAL) 3 % (0-2); LYMPHOCYTES % (MANUAL) 14 % (22-44); MONOCYTES % (MANUAL) 5 % (2-9); REACTIVE LYMPHOCYTES 2 % (0-0); SEGMENTED NEUTROPHILS % 76 % (40-70)
[2020-10-17 06:40] LABS: MAN.DIFF COMMENT-IMPRESSION MANUAL DIFFERENTIAL
[2020-10-17 08:26] VITALS: BP 140/67
[2020-10-17] MEDS: FOLIC ACID 1 MG TABLET PO SCH (08:50)
[2020-10-17] MEDS: CYANOCOBALAMIN (VITAMIN B-12) 100 MCG TABLET PO SCH (08:50)
[2020-10-17] MEDS: APIXABAN 2.5 MG TABLET PO SCH ×2 (08:50→20:10)
[2020-10-17] MEDS: FAMOTIDINE 20MG TAB 20 MG TAB PO SCH (08:50)
[2020-10-17] MEDS: IRON SUCROSE COMPLEX 100 MG in SODIUM CHLORIDE 0.9% 50 ML IV SCH (08:50)
[2020-10-17] MEDS: CELECOXIB 200 MG CAP PO SCH ×2 (08:50→20:10)
[2020-10-17] MEDS: POLYETHYLENE GLYCOL 3350 17 GM POWD.PACK PO SCH (08:51)
[2020-10-17 11:30] VITALS: BP 128/59
[2020-10-17] MEDS ORDERED: OXYCODONE/ACETAMIN 5/325MG TAB PO PRN (13:15)
--- NOTE | 2020-10-17 13:44 | NUR ---
DC PLAN VISITED WITH PATIENT AND DAUGHTER. CHANGED MIND TO SNF. ASKED DR. HOLLY IF OKAY TO CONTINUE WITH SNF AND THAT PATIENT CHANGED MIND. GOT OKAY. CALLED [facility] SAID THEY ARE IN NETWORK JUST WAITING FOR AUTH. WILL CALL [facility] TOMORROW WHEN THEY ARE OPEN TO LET THEM KNOW TO CANCEL REFERRAL. Addendum: 10/17/20 at 1347 by GELA DALLAS RN CM Amended: Links added.
[2020-10-17 16:17] VITALS: BP 130/76
[2020-10-17 19:35] VITALS: BP 131/69
--- NOTE | 2020-10-17 20:00 | NUR ---
assessment patient awake, alert, ox3, no sob , c/o pain, see pain assessment and treatment, patients daughter at bedside, extensive discussion regarding plan of care and expected outcome, both verbalize understanding via teach back
[2020-10-17] MEDS: ATORVASTATIN CALCIUM 10 MG TABLET PO SCH (20:10)
[2020-10-17] MEDS: OXYCODONE/ACETAMIN 5/325MG TAB PO PRN (20:11)
[2020-10-18] VITALS (7 sets, daily range): BP systolic 107–130; BP diastolic 53–77
[2020-10-18] MEDS: OXYCODONE/ACETAMIN 5/325MG TAB PO PRN ×2 (04:52→15:35)
[2020-10-18] MEDS: POLYETHYLENE GLYCOL 3350 17 GM POWD.PACK PO SCH (08:27)
[2020-10-18] MEDS: APIXABAN 2.5 MG TABLET PO SCH ×2 (08:28→19:31)
[2020-10-18] MEDS: FAMOTIDINE 20MG TAB 20 MG TAB PO SCH (08:28)
[2020-10-18] MEDS: CELECOXIB 200 MG CAP PO SCH ×2 (08:28→19:31)
[2020-10-18] MEDS: FOLIC ACID 1 MG TABLET PO SCH (08:28)
[2020-10-18] MEDS: CYANOCOBALAMIN (VITAMIN B-12) 100 MCG TABLET PO SCH (08:28)
[2020-10-18] MEDS: IRON SUCROSE COMPLEX 100 MG in SODIUM CHLORIDE 0.9% 50 ML IV SCH (08:28)
--- NOTE | 2020-10-18 11:53 | NUR ---
PATIENT AND DAUGHTER AT BEDSIDE. TENT WORKER, SUDHEER MET WITH THEM AND EXPLAINED THE TWO OPTIONS FOR DISCHARGE. EITHER GO TO A FACILITY TO GET STRENGTH BEFORE CHEMOTHERAPY OR TO GO HOME AND START CHEMOTHERAPY STAT. PATIENT AND DAUGHTER VERBALIZED UNDERSTANDING OF ALL EDUCATION GIVEN REGARDING PALLIATIVE CHEMOTHERAPY. DAUGHTER SEEMS HESITANT OF TAKING HER MOTHER HOME BECAUSE SHE HAS OTHER PERSONAL/FINANCIAL PROBLEMS. FAMILY TO DECIDE TODAY, IF POSSIBLE.
--- NOTE | 2020-10-18 12:26 | NUR ---
SPOKE TO FAMILY AT BEDSIDE, DISCUSSED DC OPTIONS REVIEWED WHAT IS NECESSARY FOR FAMILY TO TAKE PATIENT HOME. DTR STATES PT TOO WEAK TO WALK, NEEDED DME. ADVISED THEM THAT INSURANCE IS NOT GOING TO BE ABLE TO APPROVED ON THE WEEKEND, BUT IF THE FAMILY WANTED TO TAKE PT HOME WITH A BORROWED WHEELCHAIR, CM WOULD PURSUE THE RX /APPROVAL FROM INSURANCE ON WEDNESDAY. PT/FAMILY DECLINED, STATES THEY WANT TO BE SURE THAT THE PATIENT IS SAFE- DOEN'T KNOW IF SHE CAN GO FORM CAR TO HOUSE ETC. CM TO REVIEW AND SUPPLY RX FOR DME FOR DR. HOLLY TO SIGN
[2020-10-18] MEDS: ATORVASTATIN CALCIUM 10 MG TABLET PO SCH (19:31)
[2020-10-19 04:00] VITALS: BP 126/65
[2020-10-19] MEDS: APIXABAN 2.5 MG TABLET PO SCH ×2 (07:55→19:52)
[2020-10-19] MEDS: CELECOXIB 200 MG CAP PO SCH ×2 (07:55→19:53)
[2020-10-19] MEDS: FAMOTIDINE 20MG TAB 20 MG TAB PO SCH (07:55)
[2020-10-19] MEDS: CYANOCOBALAMIN (VITAMIN B-12) 100 MCG TABLET PO SCH (07:55)
[2020-10-19] MEDS: POLYETHYLENE GLYCOL 3350 17 GM POWD.PACK PO SCH (07:55)
[2020-10-19] MEDS: FOLIC ACID 1 MG TABLET PO SCH (07:56)
[2020-10-19] MEDS: IRON SUCROSE COMPLEX 100 MG in SODIUM CHLORIDE 0.9% 50 ML IV SCH (07:59)
[2020-10-19 08:07] VITALS: BP 135/66
[2020-10-19 08:14] LABS: MEAN CORPUSCULAR HEMOGLOBIN 31.2 pg (27.0-33.0); MEAN CORPUSCULAR HGB CONC 31.6 g/dL (32.0-36.0); MEAN CORPUSCULAR VOLUME 98.8 fL (79-99); NUCLEATED RED BLOOD CELLS 1.7 % (0.0-0.19); PLATELET COUNT (AUTO) 247 K/uL (130-400); RED BLOOD CELL COUNT(AUTO) 2.53 MIL/uL (4.00-5.50); RED CELL DISTRIBUTION WIDTH 21.9 % (11.0-15.5); WHITE BLOOD COUNT (AUTO) 4.8 K/uL (4.8-10.8)
[2020-10-19 08:32] LABS: CREATININE 0.7 mg/dL (0.5-1.5); POTASSIUM 4.1 mmol/L (3.5-5.1)
[2020-10-19 08:46] LABS: BASOPHILS % (MANUAL) 1 % (0-2); LYMPHOCYTES % (MANUAL) 26 % (22-44); MONOCYTES % (MANUAL) 3 % (2-9); REACTIVE LYMPHOCYTES 2 % (0-0); SEGMENTED NEUTROPHILS % 68 % (40-70)
[2020-10-19 08:47] LABS: PLATELET MORPHOLOGY COMMENT ADEQUATE
--- NOTE | 2020-10-19 11:00 | NUR ---
SPOKE TO PTx THIS AM. ADVISED YUN PT THAT WE NEED THEIR ASSESSMENT ON PATIENTS MOBILITY FOR SAFE DISCHARGE; WILL BE TRYING TO GET APPROVAL FOR WHAT EVER DME PT RECOMMENDS FOR SAFE DISCHARGE AGREED THAT PATIENT MAY NEED W/CHAIR, NOT A WALKER BECAUSE OF LEFT UPPER ARM SLING. WILL FOLLOW UP AFTER PT EVAL/NOTE. RX FOR DR. HOLLY TO SIGN IN THE CHAIR
[2020-10-19 11:23] VITALS: BP 133/73
[2020-10-19] MEDS: OXYCODONE/ACETAMIN 5/325MG TAB PO PRN ×2 (12:24→21:16)
[2020-10-19] MEDS: TRAMADOL HCL 50 MG TABLET PO PRN (13:06)
[2020-10-19 15:52] VITALS: BP 142/67
--- NOTE | 2020-10-19 18:00 | NUR ---
PT NOTES REVIEWED, PT WALKER 150 FT THIS AFTERNOON WITH 1 PERSON ASSIST. DOES NOT QUALIFY AT THIS ITME FOR A W/CHAIR. WILL ADVISED RN TO LET DR. HOLLY KNOW DISCUSSED WITH SON AT BEDSIDE
--- NOTE | 2020-10-19 18:01 | NUR ---
PT NOTES REVIEWED, PT WALKED* 150 FT THIS AFTERNOON WITH 1 PERSON ASSIST. DOES NOT QUALIFY AT THIS ITME FOR A W/CHAIR. WILL ADVISED RN TO LET DR. HOLLY KNOW DISCUSSED WITH SON AT BEDSIDE
[2020-10-19] MEDS: ATORVASTATIN CALCIUM 10 MG TABLET PO SCH (19:52)
[2020-10-19] MEDS: FERROUS SULFATE 325 MG TABLET.DR PO SCH (19:53)
[2020-10-19 20:08] VITALS: BP 114/69
[2020-10-19 23:53] VITALS: BP 108/56
[2020-10-20] MEDS: OXYCODONE/ACETAMIN 5/325MG TAB PO PRN ×2 (03:49→18:16)
[2020-10-20 04:16] VITALS: BP 121/70
[2020-10-20 07:45] VITALS: BP 102/62
[2020-10-20] MEDS: CELECOXIB 200 MG CAP PO SCH ×2 (08:08→20:47)
[2020-10-20] MEDS: FAMOTIDINE 20MG TAB 20 MG TAB PO SCH (08:08)
[2020-10-20] MEDS: FOLIC ACID 1 MG TABLET PO SCH (08:08)
[2020-10-20] MEDS: POLYETHYLENE GLYCOL 3350 17 GM POWD.PACK PO SCH (08:08)
[2020-10-20] MEDS: CYANOCOBALAMIN (VITAMIN B-12) 100 MCG TABLET PO SCH (08:08)
[2020-10-20] MEDS: APIXABAN 2.5 MG TABLET PO SCH ×2 (08:08→20:46)
[2020-10-20] MEDS: FERROUS SULFATE 325 MG TABLET.DR PO SCH ×2 (08:08→20:47)
[2020-10-20 12:03] VITALS: BP 114/69
[2020-10-20 16:25] VITALS: BP 121/69
[2020-10-20 20:04] VITALS: BP 118/64
[2020-10-20] MEDS: ATORVASTATIN CALCIUM 10 MG TABLET PO SCH (20:46)
[2020-10-20 23:49] VITALS: BP 111/61
[2020-10-21 04:01] VITALS: BP 107/62
[2020-10-21 05:35] LABS: BASOPHILS % (AUTO) 0.4 % (0.0-5.0); HEMATOCRIT 24.5 % (36-48); LYMPHOCYTES % (AUTO) 25.5 % (21.0-51.0); MEAN CORPUSCULAR HEMOGLOBIN 31.4 pg (27.0-33.0); MEAN CORPUSCULAR HGB CONC 30.6 g/dL (32.0-36.0); MEAN CORPUSCULAR VOLUME 102.5 fL (79-99); MONOCYTES % (AUTO) 7.8 % (3.0-13.0); NUCLEATED RED BLOOD CELLS 1.3 % (0.0-0.19); PLATELET COUNT (AUTO) 293 K/uL (130-400); RED BLOOD CELL COUNT(AUTO) 2.39 MIL/uL (4.00-5.50); WHITE BLOOD COUNT (AUTO) 5.5 K/uL (4.8-10.8)
[2020-10-21 06:04] LABS: CREATININE 0.7 mg/dL (0.5-1.5); POTASSIUM 4.1 mmol/L (3.5-5.1)
[2020-10-21] MEDS: OXYCODONE/ACETAMIN 5/325MG TAB PO PRN ×3 (06:46→19:11)
[2020-10-21 08:08] VITALS: BP 121/63
[2020-10-21] MEDS: FAMOTIDINE 20MG TAB 20 MG TAB PO SCH (09:04)
[2020-10-21] MEDS: CELECOXIB 200 MG CAP PO SCH (09:04)
[2020-10-21] MEDS: APIXABAN 2.5 MG TABLET PO SCH (09:04)
[2020-10-21] MEDS: POLYETHYLENE GLYCOL 3350 17 GM POWD.PACK PO SCH (09:04)
[2020-10-21] MEDS: CYANOCOBALAMIN (VITAMIN B-12) 100 MCG TABLET PO SCH (09:04)
[2020-10-21] MEDS: FERROUS SULFATE 325 MG TABLET.DR PO SCH (09:04)
[2020-10-21] MEDS: FOLIC ACID 1 MG TABLET PO SCH (09:04)
[2020-10-21 11:47] VITALS: BP 130/77
--- NOTE | 2020-10-21 13:46 | NUR ---
SPOKE Toney LAL AT BEDSIDE SHRUTHI Ziegler [facility]. DISCUSSED THAT FAMILY WANTS [facility] SIGNED. CALL TO VALERIANO Addendum: 10/21/20 at 1349 by SUDHEER MOORE RN CM Amended: Links added.
[2020-10-21 16:13] VITALS: BP 137/71
[2020-10-21] MEDS ORDERED: FERR324T4 PO (17:15)
[2020-10-21] MEDS ORDERED: FOLI1 PO (17:15)
[2020-10-21] MEDS ORDERED: PERCT PO (17:15)
[2020-10-21] MEDS ORDERED: POLY17PO4 PO (17:15)
[2020-10-21] MEDS ORDERED: APIX2.5T PO (17:15)
--- NOTE | 2020-10-21 19:25 | NUR ---
DISCHARGE PATIENT/SPOUSE GIVEN DISCHARGE INSTRUCTIONS VIA TEACH BACK. 20G PIV TO RIGHT HAND DISCONTINUED, TIP INTACT. PATIENT TO FOLLOW UP WITH DR. HOLLY IN [address] LESTER ON WEDNESDAY. [facility] FOR PHYSICAL THERAPY AND INCISION CARE. REPORT GIVEN TO RACHANA SAUCEDO RN. PATIENT STABLE AT THIS TIME. SPOUSE AT BEDSIDE.
== END 2020-10-21 19:34 | disposition home health service (06) | DRG 483 ==
LOC: EDSTATUS 14:00 → OBSVTOIN 10-09 09:11 → INTOOBSV 10-09 09:11 → DAHIP 10-09 09:11 → 2DH 10-09 21:49 → 3AH 10-13 14:36
PROVIDERS: ADMIT Orthopaedic Surgery; ATTEND Orthopaedic Surgery
PROC: 30233N1 Transfusion of Nonautologous Red Blood Cells into Peripheral Vein, Percutaneous Approach (ICD-10-PCS; 2020-10-09)
PROC: 3E0T3BZ Introduction of Anesthetic Agent into Peripheral Nerves and Plexi, Percutaneous Approach (ICD-10-PCS; 2020-10-09)
PROC: 0RRJ00Z Replacement of Right Shoulder Joint with Reverse Ball and Socket Synthetic Substitute, Open Approach (ICD-10-PCS; principal; 2020-10-09 14:48)
PROC: 0PBC0ZZ Excision of Right Humeral Head, Open Approach (ICD-10-PCS; 2020-10-09 14:48)
PROC: 30233K1 Transfusion of Nonautologous Frozen Plasma into Peripheral Vein, Percutaneous Approach (ICD-10-PCS; 2020-10-09 14:48)
DX: M84.521A Pathological fracture in neoplastic disease, right humerus, initial encounter for fracture (principal); C79.51 Secondary malignant neoplasm of bone; D62 Acute posthemorrhagic anemia; C64.9 Malignant neoplasm of unspecified kidney, except renal pelvis; I24.8 Other forms of acute ischemic heart disease; M85.80 Other specified disorders of bone density and structure, unspecified site; D69.6 Thrombocytopenia, unspecified; Z20.828 Contact with and (suspected) exposure to other viral communicable diseases; E11.9 Type 2 diabetes mellitus without complications; E78.5 Hyperlipidemia, unspecified; I10 Essential (primary) hypertension; E03.9 Hypothyroidism, unspecified; G89.29 Other chronic pain; M25.611 Stiffness of right shoulder, not elsewhere classified; I95.1 Orthostatic hypotension; Z83.3 Family history of diabetes mellitus; Z79.899 Other long term (current) drug therapy
CPT/HCPCS: 36415; 36430; 70450; 71260; 72128; 73030; 74177; 76770; 78306; 80048; 81001; 82247; 82248; 82435; 82803; 82947; 82948; 83010; 83605; 83615; 84075; 84132; 84295; 84484; 85014; 85018; 85025; 85027; 85610; 86078; 86850; 86870; 86880; 86900; 86901; 86905; 86922; 86927; 87641; 88307; 88311; 88331; 88341; 88342; 93005; 93306; 93356; 93971; 94002; 94003; 94150; 97039; A4565; A4606; A9503; G0378; J0171; J0330; J0690; J1100; J1756; J1885; J2001; J2250; J2370; J2405; J2430; J2704; J2765; J2795; J3490; J7030; J7040; J7050; J7120; P9012; P9016; P9017; P9045; Q0163; Q9967; U0003

== ENCOUNTER 2022-05-16 23:02 | Emergency (ER) | payer MEDICARE ==
[~2022-05-16] VITALS: Ht 157.5 cm; Wt 71.2 kg
[~2022-05-16 23:02] MED LIST: ACET-2743 PO; APIX2.5T PO; FERR324T4 PO; FOLI1 PO; IBUP-2070 PO; LIDO1ADH71 TP; PERCT PO; POLY17PO4 PO; PRAV20TA4 PO; VITAD50000 PO
[2022-05-16 23:40] LABS: BASOPHILS % (AUTO) 0.2 % (0.0-5.0); EOSINOPHILS % (AUTO) 0.6 % (0.0-8.0); HEMATOCRIT 45.4 % (36-48); LYMPHOCYTES % (AUTO) 17.1 % (21.0-51.0); MEAN CORPUSCULAR HEMOGLOBIN 31.7 pg (27.0-33.0); MEAN CORPUSCULAR HGB CONC 33.5 g/dL (32.0-36.0); MEAN CORPUSCULAR VOLUME 94.8 fL (79-99); MONOCYTES % (AUTO) 7.2 % (3.0-13.0); NEUTROPHILS % (AUTO) 74.7 % (40.0-77.0); PLATELET COUNT (AUTO) 310 K/uL (130-400); RED BLOOD CELL COUNT(AUTO) 4.79 MIL/uL (4.00-5.50); RED CELL DISTRIBUTION WIDTH 14.5 % (11.0-15.5); WHITE BLOOD COUNT (AUTO) 8.2 K/uL (4.8-10.8)
[2022-05-16 23:51] LABS: CREATININE 0.9 mg/dL (0.5-1.5); POTASSIUM 4.3 mmol/L (3.5-5.1)
[2022-05-16 23:56] LABS: APPEARANCE,URINE CLEAR (CLEAR); BILIRUBIN,URINE SMALL (NEGATIVE); COLOR,URINE YELLOW (YELLOW); GLUCOSE, URINE (UA) NEGATIVE (NEGATIVE); KETONES,URINE 5 mg/dL (NEGATIVE); LEUKOCYTE ESTERASE ,URINE NEGATIVE (NEGATIVE); NITRATE,URINE NEGATIVE (NEGATIVE); OCCULT BLOOD,URINE NEGATIVE (NEGATIVE); PH,URINE 7.5 (5.0-8.0); PROTEIN,URINE TRACE mg/dL (NEGATIVE); UROBILINOGEN,URINE >=8.0 mg/dL (0.2-1.0)
[2022-05-17] LABS: ALBUMIN 3.5 g/dL (3.5-5.0); BILIRUBIN,TOTAL 0.7 mg/dL (0.2-1.0); TOTAL PROTEIN, SERUM 8.9 g/dL (6.0-8.3)
[2022-05-17 00:04] LABS: BACTERIA,URINE Rare /HPF (None Seen); MUCUS,URINE Moderate LPF (None Seen); RBC,URINE None Seen /HPF (0-1); SQUAMOUS EPITHELIAL CELL,UR Few /HPF (0-2); WBC,URINE 0-1 /HPF (0-1)
[2022-05-17] MEDS ORDERED: MORPHINE 2 MG SYG IVP ONE (00:30)
[2022-05-17] MEDS ORDERED: ONDANSETRON 4MG INJ IVP ONE (00:30)
[2022-05-17 00:37] VITALS: BP 132/86
== END 2022-05-17 00:59 | disposition home or self-care (01) ==
LOC: EDH 23:02
DX: G89.3 Neoplasm related pain (acute) (chronic) (principal); R10.9 Unspecified abdominal pain; R11.0 Nausea; E11.9 Type 2 diabetes mellitus without complications; E78.00 Pure hypercholesterolemia, unspecified; I10 Essential (primary) hypertension; Z79.01 Long term (current) use of anticoagulants; Z79.1 Long term (current) use of non-steroidal anti-inflammatories (NSAID)
CPT/HCPCS: 36415; 80053; 81001; 83690; 84484; 85025; 93005; 96374; 96375; 99284; J2405

== ENCOUNTER 2024-10-23 07:56 | Day surgery (SDC) | payer MEDICARE ==
[2024-10-23] VITALS (10 sets, daily range): BP systolic 119–154; BP diastolic 79–94; PULSE 76–92; RESP 15–18; TEMP 97.4–98.1
[~2024-10-23] VITALS: Ht 157.5 cm; Wt 64.4 kg
[2024-10-23] MEDS ORDERED: IOHEXOL-350 50ML VIAL IV ONE (09:13)
[2024-10-23] MEDS ORDERED: SUCCINYLCHOLINE CHLORIDE 20 MG/ML 10 ML VIAL ONE (09:42)
[2024-10-23] MEDS ORDERED: rocuRONium bROMide 10MG/1ML 5ML VL ONE (09:43)
[2024-10-23] MEDS ORDERED: proPOFol 10 MG/ML 20ML VIAL IV ONE (09:43)
[2024-10-23] MEDS ORDERED: GLYCOPYRROLATE 0.2 MG/ML 5 ML VIAL ONE (09:43)
[2024-10-23] MEDS ORDERED: ketaMINE 50MG/ML SYRINGE 50 MG/ML DISP.SYRIN ONE (09:45)
--- NOTE | 2024-10-23 10:29 | HMCIMG ---
ERCP BILI/PANC DUCT REASON: REMOVAL OF STENT. COMPARISON: None TECHNIQUE: ERCP was performed by referring physician. FINDINGS: Please see procedure report by referring physician. IMPRESSION: ERCP.
[2024-10-23] MEDS: INDOMETHACIN 100 MG SUPP.RECT RC ONE (10:53)
== END 2024-10-23 11:15 | disposition home or self-care (01) ==
LOC: ENDO 07:56 → DAH 08:00 → ENDO 11:15
PROVIDERS: ATTEND Internal Medicine Gastroenterology
DX: R93.2 Abnormal findings on diagnostic imaging of liver and biliary tract (principal); K83.2 Perforation of bile duct; K83.8 Other specified diseases of biliary tract; R93.3 Abnormal findings on diagnostic imaging of other parts of digestive tract; Z46.59 Encounter for fitting and adjustment of other gastrointestinal appliance and device; I10 Essential (primary) hypertension; E78.5 Hyperlipidemia, unspecified; K21.9 Gastro-esophageal reflux disease without esophagitis; E03.9 Hypothyroidism, unspecified; M81.0 Age-related osteoporosis without current pathological fracture; Z85.528 Personal history of other malignant neoplasm of kidney; Z85.830 Personal history of malignant neoplasm of bone; Z79.899 Other long term (current) drug therapy
CPT/HCPCS: 43264; 82948 ×2; 43275; 74328; J2704; J3490 ×2; Q9967; A4620; C1769; A4215 ×2; A4223; A4657; A7002; A4222; A4221; A4663; J7030; A4606; C1773; 74330; J0330